=== PATIENT | female | born 1955 | race Caucasian/White ===

== ENCOUNTER → 2023-05-01 12:24 | Outpatient (CLI) | payer MEDICARE, SELFPAY ==
[2023-05-01 13:52] LABS: Chloride 100 mmol/L (98-107); Potassium 3.5 mmoL/L (3.5-5.1); Sodium 139 mmol/L (136-145)
[2023-05-01 13:55] LABS: Alanine Aminotransferase 64 U/L (12-78); Albumin Level 2.9 g/dl (3.5-5.0); Albumin/Globulin Ratio 1.1 (1.1-1.8); Anion Gap 10.5 mEq/L (5-15); Aspartate Amino Transferase 68 U/L (14-36); Blood Urea Nitrogen 15 mg/dl (7-17); Carbon Dioxide 32 mmol/L (22.0-30.0); Estimated Glomerular Filt Rate 99 ml/min (>60); GFR (African American) 120 ML/MIN (>60); Globulin 2.7 g/dL (1.3-3.2); Total Protein,Serum 5.6 g/dl (6.3-8.2)
[2023-05-01 13:56] LABS: Calcium 9.2 mg/dl (8.4-10.2); Glucose 285 mg/dl (74-100)
[2023-05-01 14:03] LABS: Alkaline Phosphatase 2060 U/L (38-126)
== END ==
PROVIDERS: PCP Internal Medicine Hematology & Oncology; Visit Provider Internal Medicine Hematology & Oncology
DX: C7A.8 Other malignant neuroendocrine tumors (principal)
CPT/HCPCS: 36415; 80053